=== PATIENT | female | born 1955 | race Caucasian/White ===

== ENCOUNTER → 2017-12-05 12:27 | Outpatient (CLI) | payer OTHER, MEDICAID, SELFPAY ==
--- NOTE | 2017-12-05 12:30 | DI.RAD.S_ITS ---
PROCEDURE: XR KNEE LT 3V INDICATIONS: left knee locked. knee instability TECHNIQUE: 3 views of the knee were acquired. COMPARISON: None. FINDINGS: Bones: No fractures or dislocations. No suspicious bony lesions. Soft tissues: No joint effusion. No suspicious soft tissue calcifications. Chondrocalcinosis projecting in the medial compartment. 1 cm chronic ossicle adjacent to the medial femoral condyle. IMPRESSION: No fracture. Possible loose body projecting in the medial soft tissues. Chondrocalcinosis. Dictated by: Manuelito Arguelles M.D. on 12/05/2017 at 13:26 Approved by: Manuelito Arguelles M.D. on 12/05/2017 at 13:29
== END ==
PROVIDERS: Family Provider Physical Medicine & Rehabilitation Pain Medicine; PCP Internal Medicine; Visit Provider Physician Assistant
DX: M25.362 Other instability, left knee (principal); M11.262 Other chondrocalcinosis, left knee
CPT/HCPCS: 73562

== ENCOUNTER → 2018-03-29 12:35 | Outpatient (CLI) | payer OTHER, MEDICAID, SELFPAY ==
--- NOTE | 2018-03-29 | DI.RAD.S_ITS ---
PROCEDURE: FL KNEE INJECTION MR/CT LT COMPARISON: None. INDICATIONS: INTERNAL DERANGEMENT TECHNIQUE: The indications, alternatives, benefits, risks, and complications of the procedure were explained to the patient. Written informed consent was obtained and placed in the chart. The left knee joint was examined fluoroscopically and a site for needle placement chosen. The skin was prepped and draped in a sterile fashion, and 1% Lidocaine infiltrated from skin down to joint capsule. A 22 gauge needle was inserted into the joint, and a small amount of iodinated contrast media injected to confirm intra-articular placement of the needle tip. This was followed by approximately 50 mL dilute solution of a Isovue-300 contrast agent. The needle was removed and a dressing was applied. The patient was given postprocedural instructions and sent to the CT suite for imaging. FINDINGS: A single fluoroscopic spot image demonstrates intra-articular location of injected iodinated contrast. IMPRESSION: Successful fluoroscopically guided administration of dilute Isovue-300 solution into the left knee joint for CT arthrogram. Dictated by: Manuelito Arguelles M.D. on 03/29/2018 at 15:09 Approved by: Manuelito Arguelles M.D. on 03/29/2018 at 15:12
--- NOTE | 2018-03-29 | DI.CT.S_ITS ---
PROCEDURE: CT LE LT W CON INDICATIONS: INTERNAL DERANGEMENT. LEFT KNEE PAIN TECHNIQUE: After the intra-articular administration of 10 mL of contrast, 1-1.5 mm axial sections acquired through the knee, with 0.75 mm coronal and sagittal reformats. COMPARISON: None. FINDINGS: Image quality: Excellent. Cartilage: Mild thinning of the articulating cartilages and medial and lateral femoral tibial compartments are seen. Low-grade chondromalacia patella throughout the apex, medial and lateral facet of patella cartilage is seen. No full-thickness cartilage defect. Menisci: Subtle contour irregularity and abnormal contrast extension involving posterior horn of medial meniscus is seen extending to superior articulating surface concerning for subtle oblique tear involving posterior horn of medial meniscus. Lateral meniscus demonstrates normal contours and morphology, without abnormal internal contrast uptake. Meniscal root ligaments appear intact. Ligaments: Anterior and posterior cruciate ligaments appear intact. Medial and lateral collateral ligaments appear intact as well. Bones: No fractures. No suspicious bony lesions. Joint space: No Torres's cyst. No intra-articular bodies. IMPRESSION: 1. Low to moderate grade chondromalacia patella throughout patella cartilage as above. Mild thinning of articulating cartilages and medial and lateral femorotibial compartments. 2. Finding is concerning for subtle oblique tear involving posterior horn of medial meniscus extending to superior articulating surface. No focal lateral meniscal tear. 3. No fracture or dislocation. 4. Cruciate ligaments are intact. Dictated by: Keyshawn Gallardo M.D. on 03/29/2018 at 14:40 Approved by: Keyshawn Gallardo M.D. on 03/29/2018 at 14:45
== END ==
PROVIDERS: Family Provider Physical Medicine & Rehabilitation Pain Medicine; PCP Internal Medicine; Visit Provider Orthopaedic Surgery
DX: M23.92 Unspecified internal derangement of left knee (principal); M25.562 Pain in left knee; M22.42 Chondromalacia patellae, left knee
CPT/HCPCS: 27369; 73701; 77002

== ENCOUNTER → 2018-11-15 09:08 | Outpatient (CLI) | payer OTHER, MEDICAID, SELFPAY ==
[2018-11-15 09:22] LABS: Add Manual Diff / Slide Review NO; Basophils Absolute Auto 100 /uL (0-100); Basophils Percent Auto 0.7 % (0-2); Eosinophils Absolute Auto 100 /uL (0-450); Eosinophils Percent Auto 1.9 % (2-4); Hematocrit 39.8 % (36-46); Lymphocytes Absolute Auto 2100 /uL (1100-4500); Lymphocytes Percent Auto 26.3 % (25-40); Mean Corpuscular HGB Conc 35.1 % (30-36); Mean Corpuscular Hemoglobin 33.5 PG (26-34); Mean Corpuscular Volume 95.4 fL (80-100); Monocytes Absolute Auto 700 /uL (0-900); Monocytes Percent Auto 9.1 % (3-14); Neutrophils Absolute Auto 4800 /uL (1500-7000); Platelet Count 337 X10^3/uL (150-400); Red Blood Cell Count 4.17 X10^6/uL (4.0-5.2); Red Cell Distribution Width 12.5 % (11.6-14.8); White Blood Cell Count 7.8 X10^3/uL (4.5-11.0)
[2018-11-15 09:38] LABS: Monotest Negative (Negative)
[2018-11-15 10:25] LABS: TSH w/ Reflex to FT4 2.09 uIU/mL (0.47-4.68)
== END ==
PROVIDERS: Family Provider Internal Medicine; PCP Internal Medicine; Visit Provider Nurse Practitioner
DX: R59.9 Enlarged lymph nodes, unspecified (principal)
CPT/HCPCS: 36415; 84443; 85025; 86318